=== PATIENT | female | born 1975 | race American Indian/Alaskan Native ===

== ENCOUNTER 2019-12-26 02:25 | Observation (INO) | payer MEDICAID ==
[2019-12-26] MEDS ORDERED: ASPIRIN 325 MG TAB PO ONE (02:44)
--- NOTE | 2019-12-26 03:18 | XRay Report ---
CHEST 1 VIEW INDICATION / CLINICAL INFORMATION: Chest Pain. COMPARISON: None available. FINDINGS: SUPPORT DEVICES: None. HEART / MEDIASTINUM: No significant abnormality. LUNGS / PLEURA: No significant pulmonary or pleural abnormality. No pneumothorax. ADDITIONAL FINDINGS: No significant additional findings. IMPRESSION: 1. No significant change Signer Name: Feliciano Vance MD Signed: 12/26/2019 3:14 AM Workstation Name: [id number]
[2019-12-26 04:00] LABS: Basophils # (Auto) 0.1 K/mm3 (0.0-0.1); Basophils % (Auto) 0.5 % (0.0-1.8); Eosinophils # (Auto) 0.3 K/mm3 (0.0-0.4); Eosinophils % (Auto) 2.6 % (0.0-4.3); Hematocrit 41.9 % (30.3-42.9); Hemoglobin 14.5 gm/dl (10.1-14.3); Lymphocytes # (Auto) 2.3 K/mm3 (1.2-5.4); Lymphocytes % (Auto) 22.6 % (13.4-35.0); Mean Corpuscular HGB Conc 35 % (30-34); Mean Corpuscular Volume 89 fl (79-97); Monocytes # (Auto) 0.8 K/mm3 (0.0-0.8); Monocytes % (Auto) 7.5 % (0.0-7.3); Platelet Count 294 K/mm3 (140-440); Red Blood Count 4.72 M/mm3 (3.65-5.03); Red Cell Distribution Width 14.4 % (13.2-15.2)
[2019-12-26 04:12] LABS: BUN/Creatinine Ratio 13; Blood Urea Nitrogen 9 mg/dL (7-17); Calcium 8.8 mg/dL (8.4-10.2); Hemolysis Index 5
[2019-12-26] MEDS ORDERED: fentaNYL 100 MCG/2 ML INJ IV ONE (06:21)
[2019-12-26] MEDS ORDERED: ONDANSETRON 4 MG/2 ML INJ IV ONE (06:21)
[2019-12-26] MEDS ORDERED: NITROGLYCERIN 2% OINT 1 GM TP ONE (06:21)
[2019-12-26] MEDS ORDERED: POTASSIUM CHLORIDE ER 20 MEQ TAB PO ONE (06:28)
--- NOTE | 2019-12-26 06:28 | Emergency Department Report ---
HPI - General Chief Complaint: Chest Pain Time Seen by Provider: 12/26/19 06:10 - HPI HPI: Room 7 The patient is a 44-year-old female present with a chief complaint of chest pain. Patient states her symptoms began yesterday at noon with substernal chest pain described as sharp in nature. Patient states she became short of breath with the pain so she took an aspirin. The patient states her chest pain waned but never completely resolved. The patient states her chest pain continued to wax and wane. Patient denies nausea/vomiting or diaphoresis. Patient currently gives her chest pain score of 8/10. Patient admits an occasional cough has been nonproductive for 1 day. Patient denies history of fever. Patient states she is never had a stress test or cardiac catheterization ED Past Medical Hx - Past Medical History Previous Medical History?: No - Surgical History Past Surgical History?: Yes Additional Surgical History: Bilateral tubal ligation - Family History Family history: no significant - Social History Smoking Status: Former Smoker (None for over 10 years) Substance Use Type: None (Denies illicit drug use), Alcohol (Occasional) - Medications Home Medications: Home Medications Medication Instructions Recorded Confirmed Last Taken Type No Known Home Medications [No 12/26/19 12/26/19 Unknown History Reported Home Medications] ED Review of Systems ROS: Stated complaint: CHEST PAIN/SOB Other details as noted in HPI Constitutional: denies: diaphoresis Eyes: denies: eye pain ENT: denies: throat pain Respiratory: shortness of breath Cardiovascular: chest pain Endocrine: no symptoms reported Gastrointestinal: denies: nausea, vomiting Genitourinary: denies: dysuria Musculoskeletal: denies: back pain Neurological: denies: headache Physical Exam - Physical Exam Vital Signs: Vital Signs 12/26/19 12/26/19 02:29 05:35 Temperature 99.3 F 98.6 F Pulse Rate 76 65 Respiratory 18 18 Rate Blood Pressure 175/98 Blood Pressure 165/95 [Left] O2 Sat by Pulse 97 97 Oximetry Physical Exam: GENERAL: The patient is well-developed well-nourished female lying on stretcher not appearing to be in acute distress. [] HEENT: Normocephalic. Atraumatic. Extraocular motions are intact. Patient has moist mucous membranes. NECK: Supple. Trachea midline CHEST/LUNGS: Clear to auscultation. There is no respiratory distress noted. HEART/CARDIOVASCULAR: Regular. There is no tachycardia. There is no gallop rub or murmur. ABDOMEN: Abdomen is soft, nontender. Patient has normal bowel sounds. There is no abdominal distention. SKIN: There is no rash. There is no pitting edema appreciated in the lower extremities. There is no diaphoresis. NEURO: The patient is awake, alert, and oriented. The patient is cooperative. The patient has normal speech MUSCULOSKELETAL: There is no evidence of acute injury. ED Course Vital Signs 12/26/19 12/26/19 02:29 05:35 Temperature 99.3 F 98.6 F Pulse Rate 76 65 Respiratory 18 18 Rate Blood Pressure 175/98 Blood Pressure 165/95 [Left] O2 Sat by Pulse 97 97 Oximetry ED Medical Decision Making - Lab Data Result diagrams: 12/26/19 03:12 12/26/19 03:14 Laboratory Last Values WBC 10.2 K/mm3 (4.5-11.0) 12/26/19 03:12 RBC 4.72 M/mm3 (3.65-5.03) 12/26/19 03:12 Hgb 14.5 gm/dl (10.1-14.3) H 12/26/19 03:12 Hct 41.9 % (30.3-42.9) 12/26/19 03:12 MCV 89 fl (79-97) 12/26/19 03:12 MCH 31 pg (28-32) 12/26/19 03:12 MCHC 35 % (30-34) H 12/26/19 03:12 RDW 14.4 % (13.2-15.2) 12/26/19 03:12 Plt Count 294 K/mm3 (140-440) 12/26/19 03:12 Lymph % (Auto) 22.6 % (13.4-35.0) 12/26/19 03:12 Cook % (Auto) 7.5 % (0.0-7.3) H 12/26/19 03:12 Eos % (Auto) 2.6 % (0.0-4.3) 12/26/19 03:12 Baso % (Auto) 0.5 % (0.0-1.8) 12/26/19 03:12 Lymph # 2.3 K/mm3 (1.2-5.4) 12/26/19 03:12 Cook # 0.8 K/mm3 (0.0-0.8) 12/26/19 03:12 Eos # 0.3 K/mm3 (0.0-0.4) 12/26/19 03:12 Baso # 0.1 K/mm3 (0.0-0.1) 12/26/19 03:12 Seg Neutrophils % 66.8 % (40.0-70.0) 12/26/19 03:12 Seg Neutrophils # 6.8 K/mm3 (1.8-7.7) 12/26/19 03:12 Sodium 138 mmol/L (137-145) 12/26/19 03:14 Potassium 3.3 mmol/L (3.6-5.0) L 12/26/19 03:14 Chloride 99.9 mmol/L (98-107) 12/26/19 03:14 Carbon Dioxide 25 mmol/L (22-30) 12/26/19 03:14 Anion Gap 16 mmol/L 12/26/19 03:14 BUN 9 mg/dL (7-17) 12/26/19 03:14 Creatinine 0.7 mg/dL (0.7-1.2) 12/26/19 03:14 Estimated GFR > 60 ml/min 12/26/19 03:14 BUN/Creatinine Ratio 13 % 12/26/19 03:14 Glucose 115 mg/dL (65-100) H 12/26/19 03:14 Calcium 8.8 mg/dL (8.4-10.2) 12/26/19 03:14 Troponin T < 0.010 ng/mL (0.00-0.029) 12/26/19 05:40 HCG, Qual Negative (Negative) 12/26/19 03:12 - EKG Data -: EKG Interpreted by Me EKG shows normal: sinus rhythm Rate: normal - EKG Data When compared to previous EKG there are: previous EKG unavailable Interpretation: nonspecific ST-T wave emilie (T wave inversions inferiorly) - Radiology Data Radiology results: report reviewed (Chest x-ray), image reviewed (Chest x-ray) interpreted by me: Chest x-ray-no focal infiltrates, no pneumothorax Findings [facility] [address] [place] [address] XR ay Report Signed Patient: FRANCES PARISI MR#: [id number] : 1975 Acct:[id number] Age/Sex: 44 / F ADM Date: 12/26/19 Loc: ED Attending Dr: Ordering Physician: YOUNG GAN MD Date of Service: 12/26/19 Procedure(s): XR chest 1V ap Accession Number(s): [id number] cc: ED MD ELVIA Fluoro Time In Minutes: CHEST 1 VIEW INDICATION / CLINICAL INFORMATION: Chest Pain. COMPARISON: None available. FINDINGS: SUPPORT DEVICES: None. HEART / MEDIASTINUM: No significant abnormality. LUNGS / PLEURA: No significant pulmonary or pleural abnormality. No pneumothorax. ADDITIONAL FINDINGS: No significant additional findings. IMPRESSION: 1. No significant change Signer Name: Feliciano Vance MD Signed: 12/26/2019 3:14 AM Workstation Name: [id number] Transcribed By: KIP Dictated By: Feliciano Vance MD Electronically Authenticated By: Feliciano Vance MD Signed Date/Time: 12/26/19313 DD/ 2 TD/TT: - Differential Diagnosis ACS, pericarditis, GERD Critical care attestation.: If time is entered above; I have spent that time in minutes in the direct care of this critically ill patient, excluding procedure time. ED Disposition Clinical Impression: Chest pain Disposition: OP ADMIT IP TO THIS HOSP Is pt being admited?: Yes Does the pt Need Aspirin: Yes Condition: Fair Instructions: Chest Pain (ED) Referrals: CLAUDIO RICH JR, MD [Primary Care Provider] - 3-5 Days Time of Disposition: 07:09 (Hospitalist notified)
[2019-12-26] MEDS ORDERED: ASPIRIN 325 MG TAB ONE (06:41)
[2019-12-26] MEDS ORDERED: diphenhydrAMINE 50 MG/ML VIAL IV ONE (09:32)
--- NOTE | 2019-12-26 12:27 | History and Physical Report ---
History of Present Illness Date of examination: 12/26/19 Date of admission: 12/26/19 07:07 Chief complaint: Chest pain History of present illness: Patient is 44 yo with no significant history . She presents with chest pain, left sided. Chest pain is sharp, stabbing pain on left sided. Chest pain with no radiation, but worse on exertion. She also complained of shortness of breath, worse on exertion. She denies fever, or cough, no nausea, no vomiting. In addition, she states she has swelling of tongue and chin since yesterday. patient thinks she is having an allergic reaction but denies any new food or medications. She was seen and evaluated in ED. Initial troponin negative. Will place on observation to rule out acute coronary syndrome and to manage allergic reaction. Past History Past Medical History: No medical history Past Surgical History: Other (Tubal ligation) Social history: , full code, other (Alcohol every 2 weeks). denies: smoking Family history: cancer (Mother of lung cancer) Medications and Allergies Allergies Allergy/AdvReac Type Severity Reaction Status Date / Time Penicillins Allergy Itching Verified 12/26/19 02:44 Home Medications Medication Instructions Recorded Confirmed Last Taken Type No Known Home Medications [No 12/26/19 12/26/19 Unknown History Reported Home Medications] Review of Systems All systems: negative (No fever, no cough, no abd pain. All other systems reviewed and are negative) Exam - Physical Exam Narrative exam: GEN: Not in acute distress, lying in bed, obese HEENT: Swelling of chin area, atraumatic, Neck: supple, No JVD Lungs: Clear to auscultation, no crackles, heart:S1 and S2 reg, no murmurs, rubs or gallop Abd:soft, non tender, non distended, normal bowel sounds Ext: No edema, no clubbing, no cyanosis Neuro: Awake,alert, oriented X 3, no focal neurological signs - Constitutional Vitals: Temp Pulse Resp BP Pulse Ox 98.0 F 82 18 134/81 95 12/26/19 10:37 12/26/19 10:15 12/26/19 10:37 12/26/19 10:37 12/26/19 09:31 Results - Labs CBC & Chem 7: 12/26/19 03:12 12/26/19 03:14 Labs: Abnormal lab results 12/26/19 12/26/19 12/26/19 Range/Units 03:12 03:14 08:37 Hgb 14.5 H (10.1-14.3) gm/dl MCHC 35 H (30-34) % Bartholomew % (Auto) 7.5 H (0.0-7.3) % D-Dimer 744.66 H (0-234) ng/mlDDU Potassium 3.3 L (3.6-5.0) mmol/L Glucose 115 H (65-100) mg/dL Assessment and Plan Chest pain to rule out acute coronary syndrome Observation Serial Troponin For stress test tomorrow D-dimer high therefore will do CTA Chest today Allergic reaction to unknown allergan Will give Solumedrol, Banadryl, pepcid Obesity I counseled her on diet and exercise Full code status.
[2019-12-26] MEDS: methylPREDNISolone Sod Succinate 125 MG/2 ML INJ IV SCH ×3 (14:08→22:13)
[2019-12-26] MEDS: FAMOTIDINE 20 MG TAB PO SCH ×2 (14:09→22:13)
[2019-12-26] MEDS: diphenhydrAMINE 50 MG/ML VIAL IV SCH ×2 (14:09→22:13)
[2019-12-26] MEDS ORDERED: MORPHINE 2 MG/1 ML INJ IV PRN (14:11)
[2019-12-26] MEDS ORDERED: ONDANSETRON 4 MG/2 ML INJ IV PRN (14:11)
[2019-12-26] MEDS ORDERED: ACETAMINOPHEN 325 MG TAB PO PRN (14:11)
--- NOTE | 2019-12-26 14:28 | Cat Scan Report ---
CTA CHEST WITH IV CONTRAST INDICATION: Chest pain TECHNIQUE: Axial CT images were obtained through the chest after injection of IV contrast. Coronal oblique 2-D reconstruction images were produced. 3 plane MIP reconstruction images were produced at an [employer]™ workstation. All CTs at this facility utilize dose reduction techniques including automated expos ure control, iterative reconstruction and weight based dosing when appropriate to reduce patient radi ation dose to as low as reasonable achievable. COMPARISON: None. FINDINGS: Evaluation of the pulmonary arteries demonstrates no evidence of central or segmental filling defects to suggest pulmonary embolism. The heart is normal in size. Evaluation of the lung parenchyma demons trates dependent atelectasis. No focal airspace disease or pleural effusion is identified. Limited imaging of the upper abdomen demonstrates no evidence of acute abnormality. Evaluation of bon y structures demonstrates no acute abnormality.. IMPRESSION: 1. No evidence of pulmonary embolism or acute parenchymal process. Signer Name: Celine Garnica MD Signed: 12/26/2019 2:23 PM Workstation Name: [id number]
[2019-12-26] MEDS: NITROGLYCERIN 2% OINT 1 GM TP SCH (18:03)
[2019-12-27 06:30] LABS: Basophils % (Auto) 0.2 % (0.0-1.8); Hematocrit 40.9 % (30.3-42.9); Hemoglobin 14.1 gm/dl (10.1-14.3); Lymphocytes # (Auto) 1.2 K/mm3 (1.2-5.4); Lymphocytes % (Auto) 10.7 % (13.4-35.0); Mean Corpuscular HGB Conc 35 % (30-34); Mean Corpuscular Volume 90 fl (79-97); Monocytes # (Auto) 0.2 K/mm3 (0.0-0.8); Monocytes % (Auto) 2.2 % (0.0-7.3); Platelet Count 296 K/mm3 (140-440); Red Blood Count 4.56 M/mm3 (3.65-5.03); Red Cell Distribution Width 14.6 % (13.2-15.2)
[2019-12-27 06:42] LABS: BUN/Creatinine Ratio 16; Blood Urea Nitrogen 11 mg/dL (7-17); Calcium 9.4 mg/dL (8.4-10.2); Hemolysis Index 1
[2019-12-27] MEDS: NITROGLYCERIN 2% OINT 1 GM TP SCH ×3 (06:58→13:15)
[2019-12-27] MEDS: methylPREDNISolone Sod Succinate 125 MG/2 ML INJ IV SCH ×2 (07:07→13:26)
[2019-12-27] MEDS: diphenhydrAMINE 50 MG/ML VIAL IV SCH (08:16)
[2019-12-27] MEDS ORDERED: REGADENOSON 0.4 MG/5 ML INJ IV ONE ×2 (08:18→08:24)
[2019-12-27] MEDS ORDERED: ASPIRIN EC 325 MG TAB PO SCH (10:00)
[2019-12-27 12:29] VITALS: BP 158/83
[2019-12-27] MEDS: FAMOTIDINE 20 MG TAB PO SCH (13:19)
--- NOTE | 2019-12-27 14:25 | Discharge Summary ---
Providers - Providers Date of Admission: 12/26/19 07:07 Date of discharge: 12/27/19 Attending physician: THEODORE RECINOS 12/26/19 Consult to Cardiac Rehabilitation [CONS] Routine Reason For Exam: Phase I Primary care physician: CLAUDIO RICH Hospitalization Condition: Fair Disposition: DC-01 TO HOME OR SELFCARE Exam - Constitutional Vitals: Temp Pulse Resp BP Pulse Ox 98.2 F 81 18 158/83 98 12/27/19 12:00 12/27/19 12:00 12/27/19 12:00 12/27/19 12:00 12/27/19 12:00 Plan Activity: other (no driving while on benadryl) Diet: low fat, low cholesterol, low salt Special Instructions: other (No driving while on Benadryl) Plan of Treatment: 1.Follow up with PCP in 1 week. Follow up with: CLAUDIO RICH JR, MD [Primary Care Provider] - 3-5 Days
--- NOTE | 2019-12-28 18:57 | Treadmill Report ---
NUCLEAR STRESS TEST REFERRING PHYSICIAN: Dr. Monet. PROTOCOL: The patient was brought to the stress lab in a postoperative state, given 10 mCi of technetium 99m at rest. The patient underwent rest imaging. The patient underwent exercise stress test. At peak stress, the patient was given 26 mCi alternative energy technician 99m. Shortly thereafter, the patient underwent stress imaging. Raw imaging reveals mild GI artifact, no significant motion artifact. SPECT images examined carefully in horizontal long axis, vertical long axis, short axis views. There is normal homogenous uptake of radioisotope in all reported segments. No evidence of significant fixed or reversible perfusion defects suggestive of prior infarction or ischemia. Gated wall motion reveals normal systolic thickening, calculated ejection fraction of 67%, no TID. CONCLUSIONS: 1. Normal myocardial perfusion scan without evidence of active ischemia or prior infarction. 2. Normal left ventricular systolic performance without evidence of transient ischemic dilatation or stress-induced segmental wall motion abnormalities. JOB# [id number] SBM/NTS
== END 2019-12-27 17:00 | disposition home or self-care (01) ==
LOC: ED 02:25 → 4A 07:07
PROVIDERS: ADMIT Internal Medicine; ATTEND Internal Medicine
DX: R07.89 Other chest pain (principal); Z87.891 Personal history of nicotine dependence; Z98.51 Tubal ligation status; Z88.0 Allergy status to penicillin
CPT/HCPCS: 36415; 71045; 71275; 78452; 80048; 84484; 84703; 85025; 85379; 93005; 93010; 93017; 96374; 96375; 96376; 99285; A9502; G0378; J1200; J2405; J2930; J3010; Q9967; J2785

== ENCOUNTER 2021-06-22 12:43 | Emergency (ER) | payer MEDICAID | END 2021-06-22 12:48 | disposition left against medical advice (07) | LOC: ED 12:43 | DX: R11.10 Vomiting, unspecified (principal); Z53.21 Procedure and treatment not carried out due to patient leaving prior to being seen by health care provider ==